=== PATIENT | male | born 1995 | race Native Hawaiian/Other Pacific Islander ===

== ENCOUNTER 2016-07-12 23:21 | Emergency (ER) | payer SELFPAY ==
[2016-07-12] MEDS ORDERED: NACL 0.9% 500 ML 500 ML IV ONE (23:39)
[2016-07-12] MEDS ORDERED: PEPCID IV ONE (23:39)
[2016-07-12] MEDS ORDERED: BENADRYL IV ONE (23:39)
--- NOTE | 2016-07-12 23:41 | Emergency Department Report ---
HPI - General Chief Complaint: Allergic Reaction Time Seen by Provider: 07/12/16 23:22 - HPI HPI: The patient is a 20-year-old male who presents for evaluation of allergic reaction. The patient reports developing sudden onset of hives and dyspnea after being stung one hour prior to arrival. He states that for the past one hour since the bee sting, he has experienced constant and severe shortness of breath exacerbated with activity, improved with an albuterol breathing treatment , and associated hives to the bilateral extremities. The patient denies throat pain, neck stiffness, dysphagia, stridor, drooling, difficulty tolerating secretions, dysphonia, hoarseness of voice, abdominal pain. He shares that he has a known history of allergy to bee stings. ED Past Medical Hx - Past Medical History Previous Medical History?: No - Surgical History Past Surgical History?: No - Social History Smoking Status: Never Smoker Substance Use Type: None - Medications Home Medications: Home Medications Medication Instructions Recorded Confirmed Last Taken Type EPINEPHrine (NF) [Epipen (Nf)] 0.3 mg IM ONCE #1 syringekit 07/13/16 Unknown Rx diphenhydrAMINE [Benadryl CAP] 50 mg PO Q8HR PRN #20 capsule 07/13/16 Unknown Rx predniSONE [Deltasone] 20 mg PO QDAY #5 tab 07/13/16 Unknown Rx ED Review of Systems ROS: Stated complaint: ALLERGIC REACTION(BEE STING) Other details as noted in HPI Constitutional: denies: fever ENT: denies: throat or neck pain Respiratory: denies: cough reports shortness of breath Cardiovascular: denies: chest pain Endocrine: denies unexplained weight loss or gain Gastrointestinal: denies: abdominal pain, nausea Genitourinary: denies: dysuria Musculoskeletal: denies: leg swelling Skin: reports rash Neurological: denies: headache Hematological/Lymphatic: denies: easy bleeding or easy bruising Psych: denies sadness or hopelessness Physical Exam - Physical Exam Vital Signs: Vital Signs 07/12/16 07/12/16 23:30 23:35 Temperature 97.7 F Pulse Rate 99 H 94 H Respiratory 20 20 Rate Blood Pressure 102/58 Blood Pressure 102/58 [Left] O2 Sat by Pulse 94 96 Oximetry Physical Exam: General: well-nourished, well-developed, no acute distress Head: Normocephalic, atraumatic Eyes: normal sclera ENT: Mucous membranes are pale and dry, no swelling of the lips, tongue, oropharynx or soft palate, no pooling of secretions in the posterior oropharynx , no stridor, no difficulty tolerating secretions Neck: trachea midline, neck supple, No neck stiffness, no cervical adenopathy Respiratory: Mildly diminished breath sounds and wheezing present throughout lung field bilaterally Cardio: S1 and S2 present, no murmurs, rubs, gallops, capillary refill is delayed Abdomen: Normoactive bowel sounds, soft abdomen, no tenderness Chest WALL/Back: No tenderness to palpation of the chest wall, no CVA tenderness with percussion Musc: No pitting edema Skin: Hives present to bilateral arms and legs Neuro: no facial drooping, normal speech Psych: Normal affect ED Course Vital Signs 07/12/16 07/12/16 23:30 23:35 Temperature 97.7 F Pulse Rate 99 H 94 H Respiratory 20 20 Rate Blood Pressure 102/58 Blood Pressure 102/58 [Left] O2 Sat by Pulse 94 96 Oximetry ED Medical Decision Making - Medical Decision Making The patient was seen and examined by myself. The patient is placed on a court recording monitor and continuous pulse ox. On initial evaluation, the patient was found to be in no distress. Evaluation orders were placed. The patient was given 0.5 mg IM epinephrine in route via EMS. Here the patient is given IV site measuring her, IV Pepcid, and IV Benadryl for treatment of anaphylaxis. The patient is monitored in the emergency department for 2 hours. On reevaluation the patient's found to have resolution of hives and wheezing. The patient is stable for discharge with outpatient follow-up. The patient is given follow-up and return instructions. The patient expressed understanding and agreed with the plan. The patient is discharged in stable condition. Critical care attestation.: If time is entered above; I have spent that time in minutes in the direct care of this critically ill patient, excluding procedure time. ED Disposition Clinical Impression: Dehydration Acute anaphylaxis Qualifiers: Encounter type: initial encounter Qualified Code(s): T78.2XXA - Anaphylactic shock, unspecified, initial encounter Bee sting-induced anaphylaxis Qualifiers: Encounter type: initial encounter Injury intent: accidental or unintentional Qualified Code(s): T63.441A - Toxic effect of venom of bees, accidental ( unintentional), initial encounter Disposition: DISCHARGED TO HOME OR SELFCARE Is pt being admited?: No Does the pt Need Aspirin: No Condition: Stable Instructions: Anaphylaxis (ED), Insect Bite or Sting (ED) Prescriptions: diphenhydrAMINE [Benadryl CAP] 50 mg PO Q8HR PRN #20 capsule PRN Reason: Allergic Reaction EPINEPHrine (NF) [Epipen (Nf)] 0.3 mg IM ONCE #1 syringekit predniSONE [Deltasone] 20 mg PO QDAY #5 tab Referrals: PRIMARY CARE, [Primary Care Provider] - 3-5 Days Time of Disposition: 23:58 Print Language: ROMANIAN
[2016-07-13 02:17] VITALS: BP 128/81
== END 2016-07-13 02:16 | disposition home or self-care (01) ==
LOC: ED 23:21
DX: T63.441A Toxic effect of venom of bees, accidental (unintentional), initial encounter (principal); T78.2XXA Anaphylactic shock, unspecified, initial encounter; E86.0 Dehydration; W57.XXXA Bitten or stung by nonvenomous insect and other nonvenomous arthropods, initial encounter; Y93.9 Activity, unspecified; Y92.9 Unspecified place or not applicable; Y99.9 Unspecified external cause status
CPT/HCPCS: 96361; 96374; 96375; 99284; J1200; J2930; J7040